=== PATIENT | male | born 1960 | race Hispanic/Latino ===

== ENCOUNTER 2017-01-08 10:25 | Observation (INO) | payer SELFPAY ==
[2017-01-08 10:58] LABS: #Basophils 0.1 thou/uL (0.0-0.2); #Eosinphils 0.2 thou/uL (0.0-0.7); #Lymphocytes 1.6 thou/uL (1.20-3.40); #Monocytes 0.5 thou/uL (0.11-0.59); #Neutrophils 6.1 thou/uL (1.40-6.50); %Eosinophils 2.1 % (0.0-10.0); %Lymphocytes 19.1 % (21.0-51.0); %Monocytes 6.1 % (0.0-10.0); Hematocrit 49.4 % (42.0-52.0); Mean Platelet Volume 9.1 fL (7.4-10.4); Red Blood Cell (RBC) Count 5.06 mill/uL (4.70-6.10); White Blood Cell (WBC) Count 8.5 thou/uL (4.8-10.8)
[2017-01-08 11:21] LABS: ALT (SGPT) 14 U/L (8-55); AST (SGOT) 17 U/L (5-34); Alkaline Phosphatase 71 U/L (40-150); Anion Gap 13 mmol/L (10-20); BUN (Urea Nitrogen) 13 mg/dL (8.4-25.7); Bilirubin, Total 0.8 mg/dL (0.2-1.2); CK (CPK) 98 U/L (30-200); Calc. Creatinine Clearance 0 mL/min (70-130); Calcium 9.9 mg/dL (7.8-10.44); Carbon Dioxide 29 mmol/L (22-29); Chloride 100 mmol/L (98-107); Estimated GFR-MDRD 85; Globulin 3.3 g/dL (2.4-3.5); Protein, Total 7.5 g/dL (6.0-8.3)
[2017-01-08 11:25] LABS: Troponin I Less than 0.010 ng/mL (< 0.028)
--- NOTE | 2017-01-08 11:39 | RAD ---
RADIOGRAPH CHEST 1 VIEW: HISTORY: 56-year-old male with acute dyspnea and acute chest pain (tightness). FINDINGS: There is no air space density, pulmonary edema, or pneumothorax. The lateral costophrenic angles ar e sharp. IMPRESSION: No acute pulmonary findings. felipe [] POS: [facility]
[2017-01-08] MEDS ORDERED: Nitroglycerin 0.4 MG TAB (25 Tab Bottle) ONE (12:21)
[2017-01-08] MEDS ORDERED: Ondansetron HCl/PF 4 MG/2 ML Vial ONE (12:24)
[2017-01-08] MEDS ORDERED: Acetaminophen 325 MG TAB ONE (12:46)
[2017-01-08] MEDS ORDERED: traMADol HCl 50 MG TAB ONE (14:02)
[2017-01-08] MEDS ORDERED: traMADol HCl 50 MG TAB PO PRN (14:04)
[2017-01-08] MEDS ORDERED: Acetaminophen 325 MG TAB PO PRN (16:05)
[2017-01-08] MEDS ORDERED: Ondansetron ODT 4 MG TAB SL PRN (16:05)
[2017-01-08] MEDS ORDERED: Ondansetron HCl/PF 4 MG/2 ML Vial IVP PRN (16:05)
[2017-01-08] MEDS ORDERED: Docusate 100 MG CAP PO PRN (16:10)
[2017-01-08] MEDS ORDERED: Dextrose 50% Abboject 50 ML SYRINGE SLOW IVP PRN (16:10)
[2017-01-08] MEDS ORDERED: Dextrose 5% in Water 1,000 ML IV PRN (16:10)
[2017-01-08] MEDS ORDERED: Nitroglycerin 0.4 MG TAB (25 Tab Bottle) PO PRN (16:10)
[2017-01-08] MEDS ORDERED: HumaLOG 300 UNITS/3 ML VIAL SC PRN (16:10)
[2017-01-08 16:33] VITALS: BMI 24.9
--- NOTE | 2017-01-08 17:28 | HP ---
PRIMARY CARE PHYSICIAN: Jules Lam M.D. CHIEF COMPLAINT: Chest pain. HISTORY OF PRESENT ILLNESS: Mr. Arteaga is a pleasant 56-year-old gentleman that has a history of hypertension and diabetes mellitus as well as tobacco abuse in the past. The patient was in his [facility] state of health until the last couple of weeks. He says he has been having cold-like symptoms ye sterday and basically just not feeling right and then yesterday he said he felt even worse. He felt tired and had no energy. The patient says this morning, he got up and went to work and as he was w alking around at work, cannot do anything specifically physical. He says he started feeling a punch ing sensation in his chest, like somebody was hitting him from the inside out. He says that his lef t arm started hurting as well as in his back. He felt a bit nauseated as well as dizzy and felt off balance. He said he felt like his words were slurring as well. He got concerned about the symptom s and as a result, he came to the emergency room for evaluation. He says he was given 2 sublingual nitroglycerin and got relief of his chest pain after this and he is being placed in observation for the evaluation of chest pain. The patient says he had a similar episode happened a few years ago an d he saw a nematologist and underwent a cardiac catheterization. He is not sure what the results ar e from that and about a little over a year ago he had a stress test that was negative; however, ther e were some equivocal results due to some diaphragmatic attenuation. Currently, the patient is ches t pain free and he is just having a headache. REVIEW OF SYSTEMS: CONSTITUTIONAL: There has been no fevers, no chills, no night sweats, no weight loss. HEENT: He currently has a headache, but this was after the nitroglycerin. No visual change s, no blurred vision, no sore throat, rhinorrhea, neck pain, no adenopathy. PULMONARY: No hemoptys is, no cough, no wheezing. CARDIOVASCULAR: As per the history of present illness with the addition of no PND, no orthopnea. GASTROINTESTINAL: He has no abdominal pain, no nausea, no vomiting, and no change in bowels. GENITOURINARY: No urinary frequency, hematuria, no hesitancy. NEUROLOGIC: N o focal weakness, numbness, no seizures. PSYCHIATRIC: No symptoms of anxiety or depression. SKIN AND INTEGUMENT: No skin changes. No rash. PAST MEDICAL HISTORY: Significant for diabetes mellitus type 2, hypertension, insomnia, also histor y of tobacco abuse. He has had a TIA as well as pancreatitis. PAST SURGICAL HISTORY: He has had pancreatitis and a cyst removal, he says 20 years ago. FAMILY HISTORY: Significant for prostate cancer, diabetes mellitus in his mother, hypertension and cirrhosis. ALLERGIES: No known drug allergies. SOCIAL HISTORY: He is , has two children. He says he is a former smoker. He quit 2 years a go. Prior to that, he smoked a pack a day. CURRENT MEDICATIONS: Include, insulin, he says 20 units, but he cannot remember the type of insulin , lisinopril and metformin. He says he has not taken insulin in several weeks due to finances and melody kennedy stopped taking metformin because he was \\\\"scared of it.\\\\" PHYSICAL EXAMINATION: GENERAL: He is alert and oriented. He appears to be in no acute distress. VITAL SIGNS: His heart rate is in the 60s, respiratory rate is 16, temperature is 97.5, blood press ure was 132/70 by the time that I saw him. HEENT: Pupils are equal, round, and reactive. Extraocular muscles are intact. His sclerae are ani cteric. Throat: There is no erythema, no exudates. NECK: No adenopathy, no bruits. LUNGS: Clear. There is no wheezing, no rales. CARDIOVASCULAR: He has a normal S1 and S2. I do not appreciate an S3 or S4. No murmurs, clicks or rubs. ABDOMEN: Soft, nontender, and nondistended. Positive for bowel sounds. No rebound, no guarding. EXTREMITIES: There is no clubbing, cyanosis, no edema. NEUROLOGIC: Neurologically the exam is nonfocal. IMAGING AND LABORATORY DATA: EKG was sinus rhythm, the rate is in the 60s. There are no acute ST w ave changes. Sodium 138, potassium 4.4, chloride is 100, CO2 is 29, BUN 13, creatinine 0.92, and gl ucose is 291. Troponin is less than 0.010. White blood cell count 8.5, hemoglobin 15.9, hematocrit is 49.4, and platelet count is 178. ASSESSMENT AND PLAN: This is a pleasant 56-year-old gentleman who presents to the emergency room wi th chest pain. The patient has risk factors for coronary artery disease including hypertension and diabetes mellitus. He has, however, had a fairly recent stress test, the stress test was not ideal and he had some evidence of possible diaphragmatic attenuation. However, it was fairly recent, and he has previously had a cardiac catheterization. For this reason, I will hold off on ordering a str ess test once again and instead we will consult Cardiology to see what would be the best next step i n evaluating this patient's chest pain. In the meantime, we will place him on aspirin and nitrates. Continue to trend his cardiac enzymes and we will need to get the names and doses of his medicatio ns and reconcile and restart these as appropriate with the exception of metformin.
[2017-01-08 18:49] LABS: Troponin I 0.011 ng/mL (< 0.028)
[2017-01-08] MEDS: HYDROcodone/Acetaminophen 5/325 mg Tablet PO PRN (19:14)
[2017-01-08 21:36] LABS: Troponin I Less than 0.010 ng/mL (< 0.028)
[2017-01-08] MEDS: Docusate 100 MG CAP PO SCH (21:38)
[2017-01-08] MEDS: Nitroglycerin 2% Ointment 1 INCH/1 GM Packet TOP SCH (21:39)
[2017-01-09] MEDS: HYDROcodone/Acetaminophen 5/325 mg Tablet PO PRN (00:03)
--- NOTE | 2017-01-09 00:35 | CON ---
DATE OF CONSULTATION: 01/08/2017 REASON FOR CONSULTATION: Chest pain. HISTORY OF PRESENT ILLNESS: Mr. Arteaga is a pleasant 56-year-old patient of Dr. Victor Hugo Hawley. Patient was admitted with chest pain. Patient has had several episodes of chest pain over the many years. He has had several stress tests. Ultimately, he underwent cardiac catheterization in 2013 due to repetitive chest pain episodes and was found to have normal coronary arteries. Patient state s that he had a pounding sensation in his chest earlier this morning, but went to work, but then sta rted feeling more like a pain that was persistent. He came here, he got nitroglycerin, he has had p ain relief, he is now resting comfortably. He also felt dizzy, lightheaded, and had some slurred sp eech, which he has had in the past as well. PAST MEDICAL HISTORY: 1. Diabetes. 2. Hypertension. 3. Tobacco. PAST SURGICAL HISTORY: He has a history of pancreatitis and cyst removal. REVIEW OF SYSTEMS: Constitutional: No significant weight gain or loss. Vision: No changes. Hear ing: No changes. Pulmonary: No cough or wheezing. Gastrointestinal: No nausea, vomiting, diarrh ea. Skin: No rashes. Neurologic: No unilateral weakness or numbness. Psychiatric: No unusual d epression or anxiety. Hematologic: No unusual bruising. Genitourinary: No burning with urination . MEDICATIONS: 1. Insulin. 2. Lisinopril. 3. Metformin. PHYSICAL EXAMINATION: GENERAL: This is a pleasant gentleman in no distress. VITAL SIGNS: Blood pressure was earlier 132/70, pulse 70 regular. HEENT: Eyes, sclerae nonicteric. Mouth, mucous membranes moist. NECK: Supple, no lymphadenopathy. LUNGS: Clear. No wheezing, rales, or rhonchi. CARDIAC: Normal S1, normal S2. There is no murmur, rub, or gallop. SKIN: He has several areas that had broken out of his lower extremities. He said he had flea bites . Peripheral pulses and good dorsalis pedis pulses bilaterally. LABORATORY DATA AND X-RAY FINDINGS: EKG did not show any acute changes. It is a normal EKG. Cardiac enzymes were negative. ASSESSMENT: 1. Chest pain of uncertain etiology. 2. Negative cardiac catheterization in 2013. PLAN: Repeat stress test tomorrow morning to look for any evidence of reversible ischemia.
[2017-01-09] MEDS: Nitroglycerin 2% Ointment 1 INCH/1 GM Packet TOP SCH ×2 (04:49→14:42)
[2017-01-09 05:40] LABS: Anion Gap 11 mmol/L (10-20); BUN (Urea Nitrogen) 11 mg/dL (8.4-25.7); Calc. Creatinine Clearance 122 mL/min (70-130); Carbon Dioxide 28 mmol/L (22-29); Chloride 101 mmol/L (98-107); Cholesterol 137 mg/dl (< 200 Desired); Estimated GFR-MDRD Greater than 90; LDL Cholesterol, Calculated 79 mg/dL
[2017-01-09] MEDS: Acetaminophen 325 MG TAB PO PRN ×2 (07:40→16:08)
[2017-01-09] MEDS ORDERED: Lisinopril 5 MG TAB PO SCH (09:00)
[2017-01-09] MEDS ORDERED: Enoxaparin Sodium 40 MG/0.4 ML SYRINGE SC SCH (09:00)
[2017-01-09] MEDS ORDERED: Aspirin 325 MG TAB PO SCH (09:00)
[2017-01-09] MEDS ORDERED: FLU VACC QS2017-18 36 mo. & older 0.5 ML SYRINGE IM ONE (09:00)
--- NOTE | 2017-01-09 10:00 | PDOC.PN ---
- Subjective Encounter Start Date: 01/09/17 Encounter Start Time: 09:59 Mr. Artegaa does not have any new complaints. He appears comfortable. - Objective Resuscitation Status: Resuscitation Status FULL:Full Resuscitation MAR Reviewed: Yes Vital Signs & Weight: Vital Signs (12 hours) Temp Pulse Resp BP Pulse Ox 01/09/17 08:00 97.8 F 67 16 01/09/17 07:02 97.8 F 67 16 144/86 H 99 01/09/17 04:30 99.1 F 61 14 153/86 H 98 01/09/17 02:39 100 01/09/17 00:05 77 16 142/88 H Weight Weight 178 lb I&O: 01/08/17 01/09/17 01/10/17 06:59 06:59 06:59 Intake Total 1113 Balance 1113 Result Diagrams: 01/08/17 10:49 01/09/17 04:37 Additional Labs: Accuchecks 01/09/17 01/08/17 01/08/17 00:05 21:36 16:15 POC Glucose 75 375 H 211 H Phys Exam - Physical Examination HEENT: PERRLA Respiratory: no wheezing, no rales, no rhonchi, clear to auscultation bilateral Cardiovascular: RRR, no significant murmur Gastrointestinal: soft, non-tender, positive bowel sounds Musculoskeletal: no edema Dx/Plan (1) Chest pain Code(s): R07.9 - CHEST PAIN, UNSPECIFIED Status: Acute (2) Diabetes mellitus Code(s): E11.9 - TYPE 2 DIABETES MELLITUS WITHOUT COMPLICATIONS Status: Chronic (3) Hypertension Code(s): I10 - ESSENTIAL (PRIMARY) HYPERTENSION Status: Acute - Plan * Chest pain- ? etiology * Stress test has been ordered. * HTN- blood pressure is trending down * DM- blood glucose is stable
[2017-01-09] MEDS: Docusate 100 MG CAP PO SCH (10:52)
[2017-01-09 15:39] VITALS: TEMP 97.7
[2017-01-09] MEDS ORDERED: ADENOSINE 60 MG/20 ML VIAL ONE (16:01)
[2017-01-09] MEDS: HumaLOG 300 UNITS/3 ML VIAL SC PRN ×2 (16:09→17:32)
[2017-01-09 17:35] VITALS: BP 138/80
--- NOTE | 2017-01-09 19:30 | NM ---
MYOCARDIAL PERFUSION STUDY 01/09/17 HISTORY: Chest pain. RADIOPHARMACEUTICAL: 27 millicuries technetium 99m Sestamibi, IV at stress and 9 millicuries technetium 99m Sestamibi, IV at rest. MEDICATIONS: Adenosine 15.1 mL (45.4 mg). FINDINGS: There is normal uptake in distribution of radiotracer throughout the left ventricular myocardium on both the rest and stress acquisitions. No significant reversible defect is seen to suggest ischemia. The quantitative analysis also shows no reversible defect. Gated images show mild hypokinesis invol ving the septum. Normal wall thickening is present. Calculated left ventricular ejection fraction i s 52%. Calculated left ventricular ejection fraction on prior study on 11/02/15 was 50%. IMPRESSION: 1. Normal myocardial perfusion study without evidence of a reversible defect seen to suggest is chemia. 2. Mild hypokinesis of the septum. 3. Low normal LVEF of 52%. POS: [facility]
--- NOTE | 2017-01-10 01:17 | DIS ---
DATE OF ADMISSION: 01/08/2017 DATE OF DISCHARGE: 01/09/2017 PRIMARY CARE PHYSICIAN: Dr. Jules Lam. DISCHARGE DISPOSITION: Home. PRIMARY DISCHARGE DIAGNOSES: 1. Chest pain, etiologies unknown. 2. Hypertension. 3. Diabetes mellitus, type 2. DISCHARGE MEDICATIONS: Include metformin 1000 mg twice daily, lisinopril 10 mg twice a day, Tresiba FlexTouch 20 units daily, and aspirin 325 mg daily. PROCEDURES DONE DURING THE ADMISSION: The patient had a nuclear stress test which was negative for any reversible ischemia. CODE STATUS: FULL CODE. ALLERGIES: No known drug allergies. HOSPITAL COURSE: Mr. Arteaga is a pleasant 56-year-old gentleman that presented to the emergency r oom with complaints of chest pain. He also had some dizziness and nausea as well. He was placed in observation. He was ruled out. He had a nuclear stress test, which was negative. There was some mention of some septal akinesis, but after discussion with Dr. Olivera, it was felt that there was no evidence of any significant findings on the stress test. This is in the setting of a patient who h ave recently had a cardiac catheterization in 2013, which was completely normal. Therefore, it is u nclear the etiology of his chest pain, but it appears to be noncardiac in origin, and he can be safe ly discharged home with close followup with Dr. Hawley in approximately one week.
--- OUTSIDE RECORDS SUMMARY | 2017-01-15 03:22 | XMS | Clinical Summary ---
:1960 Author Organization [facility] Address [address] [place] [phone] Phone Care Team Providers Name Role Phone , Primary Care Provider Unavailable Allergies Not on File Current Medications Not on file Active Problems Not on file Social History Tobacco Use Types Packs/Day Years Used Date Never Assessed Sex Assigned at Date Recorded Not on file Last Filed Vital Signs Not on file Plan of Treatment Not on file Results Not on filefrom Last 3 Months
== END 2017-01-09 18:19 | disposition home or self-care (01) ==
LOC: ERS 10:25 → 2SW 15:47
PROVIDERS: ADMIT Internal Medicine; ATTEND Internal Medicine
DX: R07.9 Chest pain, unspecified (principal); I10 Essential (primary) hypertension; E11.9 Type 2 diabetes mellitus without complications; G47.00 Insomnia, unspecified; Z79.4 Long term (current) use of insulin; Z79.82 Long term (current) use of aspirin; Z79.899 Other long term (current) drug therapy; Z98.890 Other specified postprocedural states; Z86.73 Personal history of transient ischemic attack (TIA), and cerebral infarction without residual deficits; Z87.19 Personal history of other diseases of the digestive system; Z87.891 Personal history of nicotine dependence; Z80.42 Family history of malignant neoplasm of prostate; Z83.3 Family history of diabetes mellitus; Z82.49 Family history of ischemic heart disease and other diseases of the circulatory system
CPT/HCPCS: 36415; 36416; 71010; 78452; 80048; 80053; 80061; 82550; 82553; 84484; 85025; 90471; 90682; 93005; 93017; 94760; 96361; 96372; 96374; A9500; G0008; G0378; J0153; J1650; J2405; Q2036

== ENCOUNTER 2017-05-30 10:08 | Inpatient (IN) | payer BC, SELFPAY ==
[2017-05-30 10:29] LABS: #Basophils 0.1 thou/uL (0.0-0.2); #Eosinphils 0.2 thou/uL (0.0-0.7); #Monocytes 0.6 thou/uL (0.11-0.59); %Basophils 1.4 % (0.0-1.0); %Eosinophils 2.2 % (0.0-10.0); %Lymphocytes 25.6 % (21.0-51.0); %Monocytes 7.4 % (0.0-10.0); %Neutrophils 63.5 % (42.0-75.0); Hemoglobin 14.9 g/dL (14.0-18.0); Mean Corpuscular HGB CONC 32.4 g/dL (32.0-36.0); Mean Corpuscular Hemoglobin 31.3 pg (27.0-31.0); Mean Corpuscular Volume 96.6 fl (80.0-94.0); Mean Platelet Volume 7.9 fL (7.4-10.4); Platelet Count 198 thou/uL (130-400); RBC Distribution Width 12.3 % (11.5-14.5); Red Blood Cell (RBC) Count 4.75 mill/uL (4.70-6.10); White Blood Cell (WBC) Count 7.9 thou/uL (4.8-10.8)
[2017-05-30 10:51] LABS: ALT (SGPT) 22 U/L (8-55); AST (SGOT) 22 U/L (5-34); Albumin 4.1 g/dL (3.5-5.0); Alkaline Phosphatase 62 U/L (40-150); Anion Gap 10 mmol/L (10-20); BUN (Urea Nitrogen) 14 mg/dL (8.4-25.7); Bilirubin, Total 0.5 mg/dL (0.2-1.2); CK (CPK) 130 U/L (30-200); Calc. Creatinine Clearance 0 mL/min (70-130); Calcium 10.3 mg/dL (7.8-10.44); Carbon Dioxide 30 mmol/L (22-29); Chloride 103 mmol/L (98-107); Estimated GFR-MDRD Greater than 90; Globulin 2.8 g/dL (2.4-3.5); Glucose 151 mg/dL (70-105); Lipase 10 U/L (8-78); Potassium 4.1 mmol/L (3.5-5.1); Protein, Total 6.9 g/dL (6.0-8.3); Sodium 139 mmol/L (136-145)
[2017-05-30] MEDS ORDERED: Nitroglycerin 2% Ointment 1 INCH/1 GM Packet ONE ×2 (10:54→11:12)
[2017-05-30 10:55] LABS: CKMB 1.6 ng/mL (0-6.6); Troponin I Less than 0.010 ng/mL (< 0.028)
--- NOTE | 2017-05-30 11:06 | RAD ---
PORTABLE CHEST: HISTORY: Chest pain. COMPARISON: 01/08/17 study. FINDINGS: Heart size and mediastinum are within normal limits for portable technique. The lungs are clear of i nfiltrates. There are no significant bony findings. IMPRESSION: No active intrathoracic disease. POS: [facility]
[2017-05-30] MEDS ORDERED: Acetaminophen 500 MG TAB ONE (11:12)
[2017-05-30] MEDS ORDERED: Ondansetron HCl/PF 4 MG/2 ML Vial ONE ×2 (11:16→13:13)
[2017-05-30 14:18] LABS: Troponin I Less than 0.010 ng/mL (< 0.028)
[2017-05-30 15:25] VITALS: BMI 27.3
[2017-05-30] MEDS ORDERED: hydrOXYzine 10 MG/5 ML UDCUP PO PRN (16:32)
[2017-05-30] MEDS ORDERED: Dextrose 5% in Water 1,000 ML IV PRN (16:34)
[2017-05-30] MEDS ORDERED: Dextrose 50% Abboject 50 ML SYRINGE SLOW IVP PRN (16:34)
[2017-05-30] MEDS ORDERED: Acetaminophen 500 MG TAB PO PRN (17:29)
[2017-05-30] MEDS: metFORMIN 500 MG TAB PO SCH (17:45)
[2017-05-30 17:56] LABS: Troponin I Less than 0.010 ng/mL (< 0.028)
[2017-05-30] MEDS ORDERED: INSULIN DEGLUDEC 26 UNIT SC SCH (18:00)
[2017-05-30] MEDS: HYDROcodone/Acetaminophen 7.5/325 mg Tablet PO PRN (21:48)
[2017-05-30] MEDS: hydrOXYzine 25 MG TAB PO PRN (21:52)
--- NOTE | 2017-05-30 23:10 | HP ---
PRIMRY CARE PHYSICIAN: Jules Lam M.D. CHIEF COMPLAINT: Chest pain. HISTORY OF PRESENT ILLNESS: The patient states that starting on Sunday he has had some increasing ab domen pain, chest pressure, this came to head when he was at the [employer]'s office reviewing p reop workup for cataract surgery. He had elevated systolic blood pressure at that point in time. Th e patient presented to the emergency department and was found to have elevated blood pressures in the 116 diastolic with approximate 150-160 systolic. His pain markedly improved following nitroglycerin and his diastolic improved into the 80s. The patient has been compliant with his losartan 25 mg on outpatient basis for coverage regarding his diabetes. The patient's blood sugars have been between 1 00 to 200 genevieve in the last week here with compliance on his insulin and his metformin. Patient state s he does feel a bit anxious about his upcoming surgery and finances and has not been actively checki ng his blood pressure on an outpatient basis. He had a prior catheterization in 2013 that was normal following multiple stress tests for repeat admissions for chest pain. He had no coronary disease at that point in time. He has had a repeat stress test in 12/2016 which was completely normal. The mariel adame continues to have periodic chronic pruritus to all reachable areas on his skin with a current o utbreak to right forearm. FORMAL REVIEW OF SYSTEMS: No fevers, no chills, no cough, no congestion, no runny nose, no changes i n stools. No diarrhea, no constipation. Positive abdomen pain. Positive chest pain. Positive shor tness of breath. No lower extremity edema and positive pruritus. Positive rash to right upper extre mity, no headache or vision changes. On review of past medical, family, social and surgical history, no known drug allergies, type 2 diabe tic on insulin, hypertension, insomnia, chronic shoulder pain, anxiety, and chronic pruritus inguinal hernia, pancreatitis in 1995 secondary to alcohol use, reported possible TIA in 2006; however, cary l carotid Doppler and MRI, possible atrial flutter in the past. OUTPATIENT MEDICATIONS: Include hydroxyzine 50 mg 1 tab p.o. at bedtime p.r.n. for anxiety and insom blayne and pruritus, losartan 25 mg 1 tab p.o. daily, albuterol 90 mcg 2 puffs p.r.n. cough, wheeze; Sarabjit siba 26 units with subcutaneous injection once daily, hydrocodone 7.5 mg/325 mg 1 tab p.o. q.8 hours p.r.n. pain, aspirin 81 mg, metformin 1000 mg b.i.d. The patient with prior pancreatic cystectomy in 1996 with exploratory laparotomy. The patient is a c urrent smoker, . No current alcohol use reported. FAMILY HISTORY: Father with undisclosed cancer. Mother with diabetes, hypertension, and cancer. LABORATORY WORK: White blood cell count 7.9, hemoglobin of 14.9, platelet count 196, blood glucose o f 151, potassium of 4.1, sodium of 139, creatinine 0.81. Total bilirubin of 0.5, AST of 22, ALT of 2 2, alkaline phosphatase of 62. Lipase of 10, albumin of 4.1. Troponins x2 less than 0.01. Chest x- ray without acute cardiopulmonary events. PHYSICAL EXAMINATION: GENERAL: The patient is alert and oriented, no acute distress. VITAL SIGNS: On arrival to floor, temperature of 97.7, pulse of 59, respiratory rate of 16, oxygen s aturation 97% on room air, blood pressure 159/86. HEENT: Normocephalic, atraumatic. Extraocular movements are intact. Oral mucosa is moist. NECK: Supple. HEART: Regular rate and rhythm at time of exam. No murmurs auscultated. LUNGS: Clear to auscultation bilaterally. No rubs or wheezes. ABDOMEN: Soft, positive tenderness. Positive voluntary guarding. This is throughout upper and lowe r quadrant, but worst in epigastrium to right upper quadrant. Negative bed shakes, leg lifts or rebo und tenderness. EXTREMITIES: The patient is anxious. NEUROLOGIC: Alert and oriented x3, no focal deficits. Speech is normal, otherwise. ASSESSMENT: Chest pain, rule out myocardial infarction, hypertensive urgency, type 2 diabetes, chron ic pruritus, anxiety, abdomen pain. PLAN: Follow up serial troponins, do not feel this is cardiac in nature, feels this is more secondar y to his blood pressure. Increasing the patient's losartan and adding hydrochlorothiazide for class 2 hypertension, adding diuretic to possibly help with diastolic, continuing the patient's insulin and metformin along with Accu-Cheks before meals and at bedtime. Following up repeat CMP and lipase in a.m. The patient remains distended. We may consider imaging. However, this may represent some pain from prior adhesions, from prior pancreatic surgery. Feel some of this pain may be secondary to his anxiety state. I discussed with the patient starting amitriptyline for anxiety pain control. Follow up on an outpatient basis. The patient's blood pressure is stable and abdomen is improved, keena skaggs will have discharge tomorrow. Since patient's stress test was less than 5 months old and cary l, will not seek further acute cardiac workup if troponins are negative.
[2017-05-31] MEDS: HYDROcodone/Acetaminophen 7.5/325 mg Tablet PO PRN ×3 (04:56→22:25)
[2017-05-31 05:39] LABS: ALT (SGPT) 20 U/L (8-55); AST (SGOT) 18 U/L (5-34); Albumin 3.7 g/dL (3.5-5.0); Alkaline Phosphatase 60 U/L (40-150); Anion Gap 11 mmol/L (10-20); BUN (Urea Nitrogen) 11 mg/dL (8.4-25.7); Bilirubin, Total 0.4 mg/dL (0.2-1.2); Calc. Creatinine Clearance 108 mL/min (70-130); Calcium 9.9 mg/dL (7.8-10.44); Carbon Dioxide 29 mmol/L (22-29); Chloride 99 mmol/L (98-107); Estimated GFR-MDRD 85; Globulin 2.6 g/dL (2.4-3.5); Glucose 297 mg/dL (70-105); Lipase 116 U/L (8-78); Potassium 3.8 mmol/L (3.5-5.1); Protein, Total 6.3 g/dL (6.0-8.3); Sodium 135 mmol/L (136-145)
[2017-05-31] MEDS: HumaLOG 300 UNITS/3 ML VIAL SC PRN (06:37)
[2017-05-31] MEDS: metFORMIN 500 MG TAB PO SCH ×2 (08:30→17:21)
[2017-05-31] MEDS: Amitriptyline HCl 25 MG TAB PO SCH ×2 (08:30→10:05)
[2017-05-31] MEDS: Aspirin 81 mg Enteric Coated Tablet PO SCH ×2 (08:30→10:05)
[2017-05-31] MEDS ORDERED: Lisinopril 10 MG TAB PO SCH (09:00)
[2017-05-31] MEDS ORDERED: Losartan/Hydrochlorothiazide 100 mg/25 mg Tablet PO SCH ×2 (09:00)
[2017-05-31] MEDS: Sodium Chloride 0.9% 1,000 ML IV SCH ×2 (10:07→17:17)
[2017-05-31] MEDS ORDERED: Iopamidol 370 76% 100 ML VIAL ONE (10:42)
--- NOTE | 2017-05-31 11:12 | CT ---
CT ABDOMEN AND PELVIS WITH AND WITHOUT IV CONTRAST: History: Abdominal pain. Pancreatitis. Comparison: 09-24-16 FINDINGS: Lung bases are clear. Subtle calcifications associated with the pancreatic head and tail and distenti on of the pancreatic duct are similar in appearance to the previous study. Small soft tissue density at the pancreatic tail is stable and may represent a remnant of normal pancreas of a splenial. Varices just below the GE junction are again demonstrated. There was diffuse wall thickening of the u pper stomach. Calcifications apparent within the aorta. There are degenerative changes of the lumbar spine. Tiny cysts are associated with lateral cortex of the left kidney. IMPRESSION: 1. CT findings of chronic pancreatitis are stable. No evidence of acute inflammation. 2. Portal venous hypertension likely results in the wall thickening of the upper stomach. Varices are also apparent and are stable. POS: [facility]
[2017-05-31] MEDS ORDERED: Lidocaine 1% PF 5 ML VIAL ONE (15:13)
[2017-05-31] MEDS ORDERED: Propofol 200 MG/20 ML VIAL ONE (15:13)
[2017-05-31] MEDS ORDERED: Promethazine HCl 25 MG/ML VIAL SLOW IVP PRN (21:26)
[2017-05-31] MEDS ORDERED: Promethazine HCl 25 MG/ML VIAL IM PRN (21:26)
[2017-05-31] MEDS ORDERED: Ondansetron HCl/PF 4 MG/2 ML Vial IVP PRN (21:26)
--- NOTE | 2017-05-31 21:42 | PRG ---
DATE OF SERVICE: 05/31/2017 HISTORY OF PRESENT ILLNESS: Patient continues to have abdomen pain somewhat worse this morning, some what relieved by morphine; however, following IV contrast for CTA abdomen reports worsening constipat ion requesting laxatives at this point in time. Verbalized understanding regarding findings assessed its esophageal varices, which are new. 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 He has been clean and sober for many years now and continues to rainey ve some vague substernal chest pain at times when abdomen pain is flaring. PHYSICAL EXAMINATION: VITAL SIGNS: Temperature 98.3, respiratory rate of 16, pulse of 70, oxygen saturation 97% on room ai r, blood pressure 140/85. GENERAL: Patient is alert and oriented and mild discomfort secondary to abdomen pain. HEENT: Head is normocephalic, atraumatic. Extraocular movements are intact. Sclerae are clear and white. Oral mucosa is moist. NECK: Supple. HEART: Regular rate and rhythm. No murmurs auscultated. LUNGS: Clear to auscultation bilaterally. No rubs or wheezes. ABDOMEN: Positive tenderness throughout. Voluntary guarding present. No rebound, worse to right up per quadrant and left lower quadrant. EXTREMITIES: Lower extremities without cyanosis or edema, pruritus with excoriations to right upper forearm remain. NEUROLOGIC: Patient is alert and oriented x3, no focal deficits. Speech is normal. LABORATORY DATA: Blood glucose 61-297 range last 24 hours. Lipase of 116, albumin of 3.7, total merle irubin of 0.4. Creatinine of 0.9, sodium 135, potassium of 3.8, CO2 of 29, BUN of 11. ASSESSMENT AND PLAN: Acute pancreatitis, esophageal varices with portal hypertension. Patient succe ssfully trend the troponins, given a normal stress test approximately 5 months ago. I do not feel hi s chest pain discomfort is secondary to cardiac causes, however, likely secondary to patient's pancre atitis and esophageal varices. Being this as a new diagnosis consulting Gastroenterology has seen Dr Elaine Wells in the past. We will transition his losartan/hydrochlorothiazide to losartan plus beta-blocke r for better protection against esophageal varices bleeding. At this point, we will default to Lasix or his spironolactone to Gastroenterology's recommendations. We will follow up any procedure result s. I continue to trend the patient's blood sugars regarding his diabetes. Patient will be n.p.o. fo r possible procedures at this point in time. May need to hold his insulin at this blood sugar drips low again. Metformin remains appropriate for the patient, given his current creatinine. We will fol low patient's constipation and had given patient MiraLax and glycerin suppository to see if any effec t. We will trend lipase, while he is inpatient along with abdomen exam. Lungs, abdomen exam, and li pase improved, we will consider diet if no further procedures needed.
[2017-05-31] MEDS: hydrOXYzine 25 MG TAB PO PRN (22:26)
--- NOTE | 2017-05-31 22:28 | CON ---
DATE OF CONSULTATION: 05/31/2017 CHIEF COMPLAINT: Chest pain. HISTORY OF PRESENT ILLNESS: Mr. Arteaga is a 56-year-old man who presented to the emergency room ye sterday with pressure type pain in the lower chest, upper epigastric region that radiates through to his back. He has had no nausea or vomiting. No diarrhea, constipation or blood in the stool. He st ates this pain is different than his pain in the past with pancreatitis. He has had no hematemesis o r melena. He had a CT scan of the abdomen and pelvis, which showed changes of chronic pancreatitis i n the head of the pancreas. These were also present in 2008. He was also noted to have question of varices below the GE junction, which were also seen back in 2008. He had an EGD by Dr. Wells at that time that did not show any varices. There is a wall thickening diffusely at the upper stomach by CT scan. PAST MEDICAL HISTORY: Diabetes mellitus, type 2, on insulin; hypertension; anxiety; chronic pancreat itis with calcifications in the pancreas; question of atrial flutter in the past. PAST SURGICAL HISTORY: Inguinal hernia repair, endoscopy, exploratory laparotomy with a pancreatic c yst surgery. FAMILY HISTORY: Negative for GI malignancy. SOCIAL HISTORY: He smokes. No alcohol for years. No drugs. ALLERGIES: No known drug allergies. MEDICATIONS PRIOR TO ADMISSION: Lisinopril, aspirin, metformin, insulin. REVIEW OF SYSTEMS: Negative x10 systems reviewed except as stated in the history of present illness. LABORATORY DATA: White blood cell count 7.9, hemoglobin 14.9, platelets 198. Creatinine 0.92, bilir ubin 0.4, AST 18, ALT 20, alkaline phosphatase 60, albumin 3.7, lipase was 116 this morning, down to 18 this afternoon. IMPRESSION: 1. Abnormal CT scan showing thickening of the upper stomach. 2. Lower chest pain with epigastric pain and tenderness. He does get radiation of pain to his back. This could be related to gastritis, esophagitis, peptic ulcer disease or related to a flare of acut e on chronic pancreatitis. 3. Chronic pancreatitis noted by pancreatic calcifications by CT scan as far back as 2008. There is also question of varices at the GE junction by prior imaging; however, EGD in 2008 did not show obvi ous varices. RECOMMENDATIONS: Plan endoscopy to evaluate for esophagitis, gastritis, malignancy in the upper stom ach or peptic ulcer disease. We will also evaluate if he has developed varices in this area.
--- NOTE | 2017-05-31 23:16 | OP ---
DATE OF PROCEDURE: 05/31/2017 PROCEDURE: Esophagogastroduodenoscopy. PREOPERATIVE DIAGNOSIS: Epigastric pain and abnormal CT scan of the stomach. OPERATIVE NOTE: Informed consent was obtained from the patient. The patient was sedated with total intravenous anesthesia. The bite block was placed and the endoscope was advanced easily to the secon d portion of the duodenum and retroflexion was performed in the stomach. The esophagus was normal. The GE junction was normal. There were no esophageal varices. He had some edema of the cardia of th e stomach, but otherwise was unremarkable. Stomach was otherwise normal including retroflexed views. The pylorus and first and second portions of the duodenum again some mild edema of the bulb of the duodenum and minimal erythema, but no ulcers or significant gastritis. IMPRESSION: 1. Mild edema at the cardia of the stomach, but otherwise unremarkable esophagogastroduodenoscopy. 2. Pain could be secondary to mild flare of chronic pancreatitis versus other etiology. There is no significant varices noted by endoscopy. RECOMMENDATIONS: 1. Advance diet in the morning. 2. I will sign off for now. Please call if GI can be of assistance.
[2017-06-01] MEDS: Sodium Chloride 0.9% 1,000 ML IV SCH ×2 (00:29→08:13)
[2017-06-01 05:05] LABS: ALT (SGPT) 18 U/L (8-55); AST (SGOT) 13 U/L (5-34); Albumin 3.7 g/dL (3.5-5.0); Alkaline Phosphatase 55 U/L (40-150); Anion Gap 9 mmol/L (10-20); BUN (Urea Nitrogen) 8 mg/dL (8.4-25.7); Bilirubin, Total 0.5 mg/dL (0.2-1.2); Calc. Creatinine Clearance 110 mL/min (70-130); Calcium 9.2 mg/dL (7.8-10.44); Carbon Dioxide 30 mmol/L (22-29); Chloride 99 mmol/L (98-107); Estimated GFR-MDRD 88; Globulin 2.4 g/dL (2.4-3.5); Glucose 326 mg/dL (70-105); Lipase 26 U/L (8-78); Protein, Total 6.1 g/dL (6.0-8.3); Sodium 134 mmol/L (136-145)
[2017-06-01] MEDS: HumaLOG 300 UNITS/3 ML VIAL SC PRN (06:22)
[2017-06-01] MEDS: HYDROcodone/Acetaminophen 7.5/325 mg Tablet PO PRN (06:25)
[2017-06-01] MEDS: metFORMIN 500 MG TAB PO SCH (08:09)
[2017-06-01] MEDS: Amitriptyline HCl 25 MG TAB PO SCH (08:13)
[2017-06-01 08:14] VITALS: BP 154/81
[2017-06-01 08:16] VITALS: TEMP 98.3
[2017-06-01] MEDS ORDERED: Atenolol 25 MG TAB PO SCH (09:00)
[2017-06-01] MEDS ORDERED: Polyethylene Glycol 3350 17 GM Packet PO SCH (09:00)
[2017-06-01] MEDS ORDERED: Losartan 25 MG TAB PO SCH (09:00)
--- NOTE | 2017-06-02 17:34 | EKG ---
Test Reason : CHEST PAIN Blood Pressure : / mmHG Vent. Rate : 065 BPM Atrial Rate : 065 BPM P-R Int : 146 ms QRS Dur : 086 ms QT Int : 394 ms P-R-T Axes : 067 064 053 degrees QTc Int : 409 ms Normal sinus rhythm Normal ECG Confirmed by BORIS MATHEW, HARJEET ([id number]), visual effects editor ADELITA DAVID ([id number] on 06/02/2017 5:33:45 PM Referred By: Confirmed By:HARJEET ESCALANTE MD
--- NOTE | 2017-06-04 09:25 | DIS ---
PRIMARY CARE PHYSICIAN: Myself, Dr. Jules Lam CHIEF COMPLAINT: Chest pain. HISTORY OF PRESENT ILLNESS: On presentation to the Emergency Department the patient states he had vera bsternal chest pain with some radiation through lower rib segments, noted to have gastroesophageal re flux flareup and associated abdomen pain at that point in time. The patient is known to have prior e pisodes of pancreatitis; however, his lipase on initial presentation was normal. The patient had a n ormal stress test in the last 5-6 months. During the patient's hospital stay, his abdominal pain con tinued to worsen and his lipase tripled. Abdomen CT pelvis was performed showing inflammation throug h parts of the lower esophagus and upper stomach consistent with esophageal varices. Gastroenterolog y was consulted. Dr. Murphy performed EGD, found no evidence of varices on scope. He did find some a reas of inflammation. The patient was placed n.p.o. and then titrated back on diet for pain profile. The patient had episodes of anxiety about his current health. He was stabilized and tolerated diet well prior to discharge following large bowel movement. DISCHARGE MEDICATIONS: Medications included amitriptyline 25 mg, continuation of baby aspirin 81 mg, atenolol 25 mg 1 tab p.o. b.i.d. attempt to brand name, gabapentin 300 mg, hydrocodone 7.5 mg/325 q. 8h. p.r.n., hydroxyzine 50 mg at bedtime, continued, Traceba 26 units subcutaneous daily continued, l osartan increased to 50 mg 1 tab daily, continued 1000 mg metformin b.i.d., started Protonix 40 mg 1 tab daily. HOSPITAL COURSE: The patient's chest pain did resolve with nitro which dropped his diastolic from 11 6 down to 80. The patient's blood pressure medications were titrated up with improved blood pressure prior to discharge. ADMITTING DIAGNOSES: Diagnoses during hospital stay included chest pain, rule out myocardial infarct ion, type 2 diabetes, acute on chronic pancreatitis, hypertensive urgency, gastroesophageal reflux di sease, anxiety. DISCHARGE DIET: Diabetic, low fat. DISCHARGE ACTIVITY: As tolerated. DISCHARGE FOLLOWUP: Follow up with myself, Dr. Jules Lam in 7-10 days. DISCHARGE CONDITION: Home in good condition.
== END 2017-06-01 12:12 | disposition home or self-care (01) | DRG 439 ==
LOC: ERS 10:08 → 2SW 13:29 → OBSVTOIN 13:29
PROVIDERS: ADMIT Family Medicine; ATTEND Family Medicine
PROC: 0DJ08ZZ Inspection of Upper Intestinal Tract, Via Natural or Artificial Opening Endoscopic (ICD-10-PCS; principal; 2017-05-31)
DX: K85.90 Acute pancreatitis without necrosis or infection, unspecified (principal); I85.00 Esophageal varices without bleeding; K76.6 Portal hypertension; K86.1 Other chronic pancreatitis; E11.9 Type 2 diabetes mellitus without complications; Z79.4 Long term (current) use of insulin; I10 Essential (primary) hypertension; G47.00 Insomnia, unspecified; M25.519 Pain in unspecified shoulder; F41.9 Anxiety disorder, unspecified; Z79.82 Long term (current) use of aspirin; I16.0 Hypertensive urgency; L29.9 Pruritus, unspecified; K59.00 Constipation, unspecified; E78.5 Hyperlipidemia, unspecified; Z87.891 Personal history of nicotine dependence; F10.21 Alcohol dependence, in remission; K21.9 Gastro-esophageal reflux disease without esophagitis
CPT/HCPCS: 36415; 36416; 71045; 74178; 80053; 82553; 83690; 84484; 85025; 93005; 94760; 96374; 96375; 96376; J2001; J2270; J2405; J2704

== ENCOUNTER 2017-11-27 13:19 | Emergency (ER) | payer OTHER ==
[2017-11-27] MEDS ORDERED: Ondansetron HCl/PF 4 MG/2 ML Vial ONE (15:09)
[2017-11-27] MEDS ORDERED: Ketorolac Tromethamine 30 MG/ML VIAL ONE (16:21)
--- NOTE | 2017-11-27 16:24 | ULT ---
TESTICULAR/SCROTAL ULTRASOUND 11/27/17 HISTORY: Bilateral inner thigh pain. TECHNIQUE: Multiplanar lee scale and color doppler images were obtained in a bilateral testicular/scrotal ultra sound. Spectral analysis of the doppler waveforms of the testicles were performed. FINDINGS: Testicles are normal in echogenicity without focal lesions and demonstrate normal symmetric internal flow. There is a trace amount of fluid in the right scrotum which may be physiologic. The left epidid ymis are normal in appearance. There is a small epididymal cyst measuring 4 mm in greatest dimension. Normal flow is seen within the epididymi. IMPRESSION: Small right epididymal cyst; otherwise unremarkable exam. POS: [facility]
[2017-11-27 16:29] LABS: Bilirubin Negative (Negative); Blood, Urine Negative (Negative); Clarity CLEAR (Clear); Glucose, Urine (Dipstick) >=1000 mg/dL (Negative); Leukocyte Negative (Negative); Nitrite Negative (Negative); Protein, Urine (Dipstick) Negative (Neg-Trace); Specific Gravity, Urine 1.033 (1.002-1.036); pH, Urine 6.5 (5.0-9.0)
[2017-11-27 16:51] LABS: #Basophils 0.1 thou/uL (0.0-0.2); #Eosinphils 0.3 thou/uL (0.0-0.7); #Monocytes 0.7 thou/uL (0.11-0.59); %Basophils 1.4 % (0.0-1.0); %Eosinophils 3.7 % (0.0-10.0); %Lymphocytes 28.5 % (21.0-51.0); %Monocytes 9.9 % (0.0-10.0); %Neutrophils 56.4 % (42.0-75.0); Hemoglobin 14.8 g/dL (14.0-18.0); Mean Corpuscular HGB CONC 33.5 g/dL (32.0-36.0); Mean Corpuscular Volume 95.6 fL (78.0-98.0); Mean Platelet Volume 9.3 fL (7.4-10.4); Platelet Count 198 thou/uL (130-400); RBC Distribution Width 12.5 % (11.5-14.5); Red Blood Cell (RBC) Count 4.64 mill/uL (4.70-6.10)
[2017-11-27 17:10] LABS: ALT (SGPT) 17 U/L (8-55); AST (SGOT) 17 U/L (5-34); Albumin 4.2 g/dL (3.5-5.0); Alkaline Phosphatase 72 U/L (40-150); Anion Gap 6 mmol/L (10-20); BUN (Urea Nitrogen) 16 mg/dL (8.4-25.7); Bilirubin, Total 0.4 mg/dL (0.2-1.2); Calc. Creatinine Clearance 0 mL/min (70-130); Calcium 9.5 mg/dL (7.8-10.44); Carbon Dioxide 29 mmol/L (22-29); Chloride 105 mmol/L (98-107); Estimated GFR-MDRD 85; Globulin 3.1 g/dL (2.4-3.5); Glucose 224 mg/dL (70-105); Potassium 4.1 mmol/L (3.5-5.1); Protein, Total 7.3 g/dL (6.0-8.3); Sodium 136 mmol/L (136-145)
[2017-11-27] MEDS ORDERED: traMADol HCl 50 MG TAB ONE (17:58)
== END 2017-11-27 18:04 | disposition home or self-care (01) ==
LOC: ERS 13:19
DX: R10.31 Right lower quadrant pain (principal); E78.5 Hyperlipidemia, unspecified; I10 Essential (primary) hypertension; E11.9 Type 2 diabetes mellitus without complications; Z86.73 Personal history of transient ischemic attack (TIA), and cerebral infarction without residual deficits; Z87.891 Personal history of nicotine dependence; Z79.4 Long term (current) use of insulin; Z79.899 Other long term (current) drug therapy
CPT/HCPCS: 76870; 80053; 81003; 85025; 93976; 96361; 96374; 96375; J1885; J2270; J2405

== ENCOUNTER 2017-11-28 02:07 | Emergency (ER) | payer OTHER ==
[2017-11-28] MEDS ORDERED: Cyclobenzaprine 10 MG TAB ONE (03:57)
== END 2017-11-28 04:04 | disposition home or self-care (01) ==
LOC: ERS 02:07
DX: R10.31 Right lower quadrant pain (principal); E78.5 Hyperlipidemia, unspecified; I10 Essential (primary) hypertension; E11.9 Type 2 diabetes mellitus without complications; Z79.4 Long term (current) use of insulin; Z86.73 Personal history of transient ischemic attack (TIA), and cerebral infarction without residual deficits; Z87.891 Personal history of nicotine dependence; Z79.84 Long term (current) use of oral hypoglycemic drugs; Z79.899 Other long term (current) drug therapy
CPT/HCPCS: 99283

== ENCOUNTER 2018-01-16 19:41 | Emergency (ER) | payer OTHER ==
[2018-01-16 21:12] LABS: #Basophils 0.1 thou/uL (0.0-0.2); #Eosinphils 0.3 thou/uL (0.0-0.7); #Lymphocytes 2.4 thou/uL (1.20-3.40); #Monocytes 0.6 thou/uL (0.11-0.59); #Neutrophils 4.9 thou/uL (1.40-6.50); %Basophils 1.7 % (0.0-1.0); %Lymphocytes 28.9 % (21.0-51.0); %Monocytes 6.7 % (0.0-10.0); %Neutrophils 58.7 % (42.0-75.0); Hemoglobin 15.2 g/dL (14.0-18.0); Mean Corpuscular HGB CONC 32.2 g/dL (32.0-36.0); Mean Corpuscular Hemoglobin 31.1 pg (27.0-31.0); Mean Corpuscular Volume 96.5 fL (78.0-98.0); Mean Platelet Volume 8.3 fL (7.4-10.4); Platelet Count 224 thou/uL (130-400); RBC Distribution Width 12.7 % (11.5-14.5); White Blood Cell (WBC) Count 8.4 thou/uL (4.8-10.8)
[2018-01-16] MEDS ORDERED: Ketorolac Tromethamine 30 MG/ML VIAL ONE (21:25)
[2018-01-16 21:29] LABS: ALT (SGPT) 17 U/L (8-55); AST (SGOT) 17 U/L (5-34); Albumin 4.1 g/dL (3.5-5.0); Alkaline Phosphatase 82 U/L (40-150); Anion Gap 10 mmol/L (10-20); BUN (Urea Nitrogen) 17 mg/dL (8.4-25.7); Bilirubin, Total 0.2 mg/dL (0.2-1.2); Calc. Creatinine Clearance 0 mL/min (70-130); Calcium 9.8 mg/dL (7.8-10.44); Carbon Dioxide 31 mmol/L (22-29); Chloride 99 mmol/L (98-107); Estimated GFR-MDRD 61; Globulin 3.4 g/dL (2.4-3.5); Glucose 461 mg/dL (70-105); Potassium 4.7 mmol/L (3.5-5.1); Protein, Total 7.5 g/dL (6.0-8.3); Sodium 135 mmol/L (136-145)
[2018-01-16 21:31] LABS: Bilirubin Negative (Negative); Blood, Urine Negative (Negative); Clarity CLEAR (Clear); Glucose, Urine (Dipstick) >=1000 mg/dL (Negative); Leukocyte Negative (Negative); Nitrite Negative (Negative); Protein, Urine (Dipstick) Negative (Neg-Trace); Specific Gravity, Urine 1.028 (1.002-1.036); Urobilinogen 0.2 mg/dL (0.2-1.0); pH, Urine 7.5 (5.0-9.0)
[2018-01-16] MEDS ORDERED: Insulin Regular 300 UNITS/3 ML VIAL ONE (22:31)
== END 2018-01-16 22:38 | disposition home or self-care (01) ==
LOC: ERS 19:41
DX: E11.65 Type 2 diabetes mellitus with hyperglycemia (principal); E78.5 Hyperlipidemia, unspecified; I10 Essential (primary) hypertension; Z86.73 Personal history of transient ischemic attack (TIA), and cerebral infarction without residual deficits; Z87.891 Personal history of nicotine dependence; Z79.899 Other long term (current) drug therapy; Z79.4 Long term (current) use of insulin
CPT/HCPCS: 36416; 80053; 81003; 82010; 85025; 96361; 96374; J1815; J1885

== ENCOUNTER 2018-06-06 14:57 | Emergency (ER) | payer BC ==
[2018-06-06] MEDS ORDERED: Metoclopramide HCl 10 MG/2 ML VIAL ONE (16:07)
[2018-06-06] MEDS ORDERED: Acetaminophen 500 MG TAB ONE (16:07)
[2018-06-06] MEDS ORDERED: diphenhydrAMINE 50 MG/ML VIAL ONE (16:07)
[2018-06-06 16:13] LABS: #Basophils 0.1 thou/uL (0.0-0.2); #Eosinphils 0.4 thou/uL (0.0-0.7); #Monocytes 0.7 thou/uL (0.11-0.59); #Neutrophils 4.2 thou/uL (1.40-6.50); %Basophils 1.8 % (0.0-1.0); %Eosinophils 5.1 % (0.0-10.0); %Lymphocytes 26.8 % (21.0-51.0); %Monocytes 9.8 % (0.0-10.0); %Neutrophils 56.5 % (42.0-75.0); Hemoglobin 14.9 g/dL (14.0-18.0); Mean Corpuscular HGB CONC 32.3 g/dL (32.0-36.0); Mean Corpuscular Hemoglobin 31.5 pg (27.0-31.0); Mean Corpuscular Volume 97.5 fL (78.0-98.0); Mean Platelet Volume 8.6 fL (7.4-10.4); Platelet Count 208 thou/uL (130-400); RBC Distribution Width 12.5 % (11.5-14.5); Red Blood Cell (RBC) Count 4.73 mill/uL (4.70-6.10); White Blood Cell (WBC) Count 7.5 thou/uL (4.8-10.8)
[2018-06-06 16:35] LABS: ALT (SGPT) 13 U/L (8-55); AST (SGOT) 13 U/L (5-34); Albumin 3.9 g/dL (3.5-5.0); Alkaline Phosphatase 62 U/L (40-150); Anion Gap 10 mmol/L (10-20); BUN (Urea Nitrogen) 21 mg/dL (8.4-25.7); Bilirubin, Total 0.5 mg/dL (0.2-1.2); Calc. Creatinine Clearance 0 mL/min (70-130); Calcium 9.7 mg/dL (7.8-10.44); Carbon Dioxide 31 mmol/L (22-29); Chloride 104 mmol/L (98-107); Estimated GFR-MDRD 84; Globulin 2.8 g/dL (2.4-3.5); Glucose 168 mg/dL (70-105); Potassium 4.1 mmol/L (3.5-5.1); Protein, Total 6.7 g/dL (6.0-8.3); Sodium 141 mmol/L (136-145)
--- NOTE | 2018-06-06 16:38 | CT ---
HEAD CT NONCONTRAST: 06/06/18 INDICATION: Emergency exam. Persistent headache. FINDINGS: There is no ventriculomegaly, mass effect, midline shift, or acute intracranial hemorrhage. No acute fluid level of the imaged paranasal sinuses. There is calcification of the left lentiform nucleus wit h mild surrounding rim of hypodensity. Given shape of calcification as well as the surrounding hyper dense rim, this favors component of a vascular anomaly. IMPRESSION: No acute intracranial abnormalities. POS: [facility]
[2018-06-06] MEDS ORDERED: Magnesium 2 GM/50 ML BAG (IN WATER) ONE (17:33)
[2018-06-06] MEDS ORDERED: Ketorolac Tromethamine 30 MG/ML VIAL ONE (17:33)
[2018-06-06] MEDS ORDERED: methylPREDNISolone Sod Succ/PF 125 MG/2 ML VIAL ONE (17:33)
== END 2018-06-06 17:50 | disposition home or self-care (01) ==
LOC: ERS 14:57
DX: R51 Headache (principal); R10.9 Unspecified abdominal pain; E78.5 Hyperlipidemia, unspecified; I10 Essential (primary) hypertension; E11.9 Type 2 diabetes mellitus without complications; Z86.73 Personal history of transient ischemic attack (TIA), and cerebral infarction without residual deficits; Z87.891 Personal history of nicotine dependence; Z79.84 Long term (current) use of oral hypoglycemic drugs; Z79.899 Other long term (current) drug therapy
CPT/HCPCS: 36415; 70450; 80053; 83690; 85025; 96365; 96375; J1200; J1885; J2765; J2930; J3475

== ENCOUNTER 2020-04-12 14:25 | Outpatient (CLI) | payer BC ==
--- NOTE | 2020-04-12 15:06 | RAD ---
XR Lumbar Spine Bending Min 4V: 04/12/2020 2:33 PM INDICATION: Lumbosacral radiculopathy COMPARISON: None FINDINGS: Fracture: None. Alignment: Spinal alignment appears within normal limits. No abnormal translational motion demonstrated. Degenerative Change: There is mild disc degenerative disease involving the L4-5 and L3-4 level. Bone Mineralization:Normal Soft tissues: No acute abnormality. IMPRESSION: Mild lumbar spondylosis. No abnormal translational motion.
== END 2020-04-12 14:26 | disposition home or self-care (01) ==
LOC: SCSRAD 14:25
PROVIDERS: ATTEND Family Medicine
DX: M54.17 Radiculopathy, lumbosacral region (principal); M47.816 Spondylosis without myelopathy or radiculopathy, lumbar region
CPT/HCPCS: 72120

== ENCOUNTER 2021-07-20 08:56 | Outpatient (CLI) | payer BC | END 2021-07-20 08:57 | disposition home or self-care (01) | LOC: BICRAD 08:56 | PROVIDERS: ATTEND Family Medicine | DX: M25.551 Pain in right hip (principal) ==